=== PATIENT | male | born 1980 | race Hispanic/Latino ===

== ENCOUNTER 2017-07-30 17:48 | Emergency (ER) | payer OTHER ==
[~2017-07-30] VITALS: Ht 167.6 cm; Wt 93.5 kg
[2017-07-30 18:06] VITALS: BP 127/80; PULSE 62; RESP 16; O2SAT 97
[2017-07-30 18:15] LABS: BASOPHILS % (AUTO) 0.4 % (0-3); EOSINOPHILS % (AUTO) 1.4 % (0-5); MONOCYTES % (AUTO) 6.5 % (4-12); Mean Corpuscular Hemoglobin 31.2 pg (27.0-35.0); Mean Corpuscular Volume 89.2 fL (81-100); NEUTROPHILS % (AUTO) 65.2 % (40-74); Platelet Count 165 bil/L (150-400)
--- NOTE | 2017-07-30 18:42 | DRSVH ---
PROCEDURE: X-RAY CHEST, TWO VIEWS ([id number]) INDICATIONS: chest pain TECHNIQUE: 2 views of the chest were acquired. COMPARISON: None. FINDINGS: Surgical changes and devices: None. Lungs and pleura: No pleural effusions or pneumothorax. Lungs are clear. Mediastinum: Mediastinal contours are normal. Heart size is normal. Bones and chest wall: No suspicious bony abnormalities. Soft tissues appear unremarkable. IMPRESSION: No acute pulmonary process. Dictated by: Em Reid M.D. on 07/30/2017 at 18:40 Approved by: Em Reid M.D. on 07/30/2017 at 18:40
--- NOTE | 2017-07-30 19:08 | ED.REPORT ---
HPI-Chest Pain Under 40 Date of Service Jul 30, 2017 ED Provider: Glenn Walsh DO Pt is an otherwise healthy 37 year old male who presents to the ED complaining of non-radiating substernal chest pain onset 04:30 today. He c/o associated chills and diaphoresis. He denies nausea, vomiting, fever, and SOB. The pt reports that he woke up with the chest pain, stating that it was initially 8/ 10. He presented to a walk-in clinic today and he was prescribed Aspirin with relief. He rates his pain as a 5/10 currently and describes it as a "constant pressure." Per pt, his pain is mildly relieved with laying down. Pt denies recent trauma or fall. The pt denies a family history of cardiac medical issues. Nursing Notes Stated Complaint: CHEST PAIN Chief Complaint: Chest Pain-Non Cardiac Nature Nursing Notes Reviewed: Yes Allergies: Coded Allergies: No Known Allergies (Unverified , 07/30/17) General Time Seen by MD: 18:19 Chief Complaint Chest pain Hx Obtained From: Patient Arrived By: Walk-in Sudden in Onset?: No Onset Occurred: 9 - 12 hours ago Symptom Duration: Since onset Location: : Substernal Quality: Painful Radiation: : Does not radiate Severity: Current: Pain level 5 out of 10 Severity: Maximum: Pain level 8 out of 10 Recent Healthcare: No recent hospitalization, Recent doctor visit Similar Sx Previous: No Past Medical History Past Medical History Denies: Diabetes mellitus, Hypertension Past Surgical History Denies Family History Denies cardiac medical issues Smoking History Unknown if Ever Smoker Social History Alcohol Use: "Social" Drug Use: Denies drug use Ambulatory Status Independent Review of Systems Constitutional: Reports: Chills, Denies: Fever Respiratory: Denies: Shortness of breath Cardiovascular: Reports: Chest pain GI: Denies: Nausea, Vomiting Skin: Reports Diaphoresis Complete sys rev & neg: except as marked. Physical Exam Initial Vital Signs Vital Signs (First) Date Time Temp Pulse Resp B/P Pulse Ox O2 Delivery O2 Flow Rate FiO2 07/30/17 18:06 36.8 62 16 127/80 97 Room Air Initial VS: Reviewed Head / Eyes: Atraumatic, Normocephalic Neck: Supple, Full range of motion Abdomen / GI: Soft, Non-tender Extremities: Vascular intact, Neuro intact Skin: Warm, Dry, No cyanosis Neurologic: Alert, Oriented, Nonfocal Psychiatric: Mood/affect normal, Behavior normal General/Constitutional: Awake, Alert Respiratory / Chest: Atraumatic, Breath sounds NL, Breath sounds = bilat Cardiovascular: Heart rate NL, Regular rhythm, Heart sounds NL Interpretation & Diagnostics Lab Results Interpretation Result Diagram: 07/30/17180707/30/17 180 Test 07/30/17 18:08 07/30/17 21:10 White Blood Count 7.2th/mm3 (3.8-10.1) Red Blood Count 4.62mil/mm3 (4.40-5.80) Hemoglobin 14.4g/dL (13.8-17.2) Hematocrit 41.2% (41.0-50.0) Mean Corpuscular Volume 89.2fL (81-100) Mean Corpuscular Hemoglobin 31.2pg (27.0-35.0) Mean Corpuscular Hemoglobin Concent 35.0% (32.0-37.0) Red Cell Distribution Width 12.8% (12.3-15.4) Platelet Count 165bil/L (150-400) Neutrophils (%) (Auto) 65.2% (40-74) Lymphocytes (%) (Auto) 26.4% (14-46) Monocytes (%) (Auto) 6.5% (4-12) Eosinophils (%) (Auto) 1.4% (0-5) Basophils (%) (Auto) 0.4% (0-3) Sodium Level 138mEq/L (134-144) Potassium Level 3.9mEq/L (3.5-5.2) Chloride Level 102mEq/L (97-108) Carbon Dioxide Level 23mmol/L (18-29) Blood Urea Nitrogen 17mg/dL (6-20) Creatinine 0.77mg/dL (0.76-1.27) Estimat Glomerular Filtration Rate 120mL/min (>59) Glucose Level 91mg/dL (60-99) Calcium Level 8.8mg/dL (8.5-10.1) Total Bilirubin 0.4mg/dL (0.0-1.2) Aspartate Amino Transf (AST/SGOT) 31U/L (0-50) Alanine Aminotransferase (ALT/SGPT) 21U/L (0-44) Alkaline Phosphatase 91U/L (25-150) Total Protein 7.1g/dL (6.4-8.4) Albumin 4.2g/dL (3.4-5.0) Troponin T 0.010ug/L (0.0-0.011) Lab Results Interpretation: Troponin - negative ECG Interpretation ECG Interpretation: Sinus rhythm with a rate of 60 Abnormal R-wave progression, early trasition Time: 18:34 Interpreted by: ED physician X-Ray Chest Interpretation Chest Xray Interpretation: IMPRESSION: No acute pulmonary process. Dictated by: Em Reid M.D. on 07/30/2017 at 18:40 View: AP & lat Interpretation / Wet Read by: Interpret - Radiologist Re-Eval/Medical Decision Med Decision/Clinical Course Healthy 37-year-old male with epigastric and retrosternal chest pain. The chest pain is positional. The chest pain to be worsened by eating. Usually is worse when he lies down but it is better if he turns on her side sometimes. His heart score is 1. Serial troponins are negative. EKG is normal. Pulmonary emboli ruled out with pulmonary embolus rule out criteria low risk/0 risk well score. Major cardiac event highly unlikely with the negative heart score and negative troponins. As it were he was given a GI cocktail almost immediate relief of symptoms. I suspect that he suffering from either esophagitis or esophageal spasm. I will recommend Prilosec and close outpatient follow-up. Source of Hx: Old records Re-Evaluation/Progress : Time of Eval: 21:58 Re-Evaluation/Progress Note: Pt rechecked. Informed pt of reassuring results and plan for discharge. Pt understands and agrees with plan for discharge. F/U instructions and RTER warnings given. All questions addressed. Counseled Regarding: Diagnosis, Lab results, Need for follow-up, When/why to return to ED Discharge & Departure Primary Impression: Chest pain Chest pain type: unspecified Qualified Code: R07.9 - Chest pain, unspecified Disposition: Home Discharge Condition All VS Reviewed: Yes Condition: Stable Patient Instructions: Chest Pain (ED) Additional Instructions: Your ECG and heart blood tests were normal. Your heart score indicates that you are at low risk for a major cardiac invent. Take Prilosec 1x daily as this may be esophageal spasms. Call the referral physician on [facility] for a follow up appointment and stress test next week. Return to the Emergency Department for any new or concerning symptoms. Referrals: MICHELLE (PCP) Damari Berger Attestation Portions of this note were transcribed by Fadia Toure. I, Dr. Walsh personally performed the history, physical exam and medical decision-making; I reviewed and confirmed the accuracy of the information in the transcribed note. Signed by : Lai Moore, 07/30/17. copies to: Damari Berger DO; Glenn Reeves DO Jul 30, 2017 19:08 Fadia Shetty Jul 30, 2017 19:32
[2017-07-30] MEDS ORDERED: Pantoprazole 40 mg ER24 Tablet PO ONE (20:20)
[2017-07-30] MEDS ORDERED: LidocaineVisc 2%:Antacid 1:1 10 mL Syringe PO SCH (20:20)
[2017-07-30 20:40] VITALS: BP 137/88; PULSE 63; RESP 21; O2SAT 96
[2017-07-30 22:44] VITALS: BP 126/76; PULSE 58; RESP 16; O2SAT 96
== END 2017-07-30 22:46 | disposition home or self-care (01) ==
LOC: SED 17:48
DX: R07.2 Precordial pain (principal)